=== PATIENT | female | born 1940 | race Caucasian/White ===

== ENCOUNTER 2018-06-24 12:41 | Emergency (ER) | payer MEDICARE, OTHER ==
[2018-06-24 13:06] LABS: ADD MAN DIFF? NO
[2018-06-24 13:08] LABS: WHITE BLOOD COUNT 5.4 10^3/ul (4.8-10.8)
[2018-06-24 13:08] LABS: BASOPHILS % 0.6 % (0.0-2.0); EOSINOPHILS # 0.1 10^3/ul (0.0-0.5); EOSINOPHILS % 1.5 % (0.0-7.0); HEMATOCRIT 30.2 % (37.0-47.0); HEMOGLOBIN 9.9 g/dl (12.0-16.0); LYMPHOCYTES # 2.5 10^3/ul (0.8-2.9); MEAN CORPUSCULAR HEMOGLOBIN 29.2 pg (29.0-33.0); MEAN CORPUSCULAR HGB CONC 32.8 g/dl (32.0-37.0); MEAN CORPUSCULAR VOLUME 89.1 fl (82.0-101.0); MEAN PLATELET VOLUME 8.6 fl (7.4-10.4); MONOCYTE # 0.6 10^3/ul (0.3-0.9); MONOCYTES % 10.5 % (0.0-11.0); NEUTROPHIL # 2.3 10^3/ul (1.6-7.5); PLATELET COUNT 576 10^3/UL (140-415); RED BLOOD COUNT 3.39 10^6/ul (4.20-5.40); RED CELL DISTRIBUTION WIDTH 14.1 % (11.5-14.5)
[2018-06-24] MEDS: SOD CHLORIDE 0.9% 1,000 ML IV (13:13)
[2018-06-24] MEDS: ONDANSETRON 4 MG INJ IV (13:13)
[2018-06-24] MEDS: morphine 2 MG INJ IV (13:25)
[2018-06-24 13:27] LABS: ALANINE AMINOTRANSFERASE 17 IU/L (13-69); ALBUMIN 3.6 g/dl (3.3-4.9); ALBUMIN/GLOBULIN RATIO 0.85; ALKALINE PHOSPHATASE 87 IU/L (42-121); ANION GAP 15 (8-16); ASPARTATE AMINO TRANSFERASE 28 IU/L (15-46); BILIRUBIN,INDIRECT 0.2 mg/dl (0-1.1); BILIRUBIN,TOTAL 0.2 mg/dl (0.2-1.3); BLOOD UREA NITROGEN 6 mg/dl (7-20); CARBON DIOXIDE 27 mmol/L (21-31); CHLORIDE 100 mmol/L (97-110); CREATININE 0.66 mg/dl (0.44-1.00); GLUCOSE 127 mg/dl (70-220); INR 1.09; LIPASE 424 U/L (23-300); POTASSIUM 3.8 mmol/L (3.5-5.1); PROTIME 14.3 Sec (11.9-14.9); PT RATIO 1.1; SODIUM 138 mmol/L (135-144); TOTAL PROTEIN 7.8 g/dl (6.1-8.1)
[2018-06-24] MEDS: SOD CHLORIDE 0.9% 100 ML (14:35)
[2018-06-24] MEDS: IOHEXOL 300MG/ML 150 ML BTL (14:35)
== END 2018-06-24 18:18 | disposition home or self-care (01) ==
LOC: E/R 12:41
DX: R10.84 Generalized abdominal pain (principal); R11.0 Nausea; Z79.84 Long term (current) use of oral hypoglycemic drugs; Z85.048 Personal history of other malignant neoplasm of rectum, rectosigmoid junction, and anus; Z90.49 Acquired absence of other specified parts of digestive tract
CPT/HCPCS: 36415; 74177; 80053; 83690; 85025; 85610; 85730; 93005; 96374; 99285-25

== ENCOUNTER 2019-01-17 13:54 | Inpatient (IN) | payer MEDICARE, OTHER ==
[2019-01-17 20:39] LABS: ADD MAN DIFF? NO
[2019-01-17 20:41] LABS: WHITE BLOOD COUNT 13.3 10^3/ul (4.8-10.8)
[2019-01-17 20:41] LABS: BASOPHILS % 0.2 % (0.0-2.0); EOSINOPHILS % 0.1 % (0.0-7.0); HEMATOCRIT 36.7 % (37.0-47.0); HEMOGLOBIN 12.7 g/dl (12.0-16.0); LYMPHOCYTES % 7.5 % (15.0-51.0); MEAN CORPUSCULAR HGB CONC 34.6 g/dl (32.0-37.0); MEAN CORPUSCULAR VOLUME 98.1 fl (82.0-101.0); MEAN PLATELET VOLUME 10.2 fl (7.4-10.4); MONOCYTE # 0.8 10^3/ul (0.3-0.9); NEUTROPHIL # 11.4 10^3/ul (1.6-7.5); NEUTROPHILS % 85.5 % (39.0-77.0); PLATELET COUNT 208 10^3/UL (140-415); RED BLOOD COUNT 3.74 10^6/ul (4.20-5.40); RED CELL DISTRIBUTION WIDTH 11.9 % (11.5-14.5)
[2019-01-17 20:54] LABS: ADD UMIC YES; UR ASCORBIC ACID NEGATIVE (NEGATIVE); UR BILIRUBIN (Dip) NEGATIVE (NEGATIVE); UR BLOOD (Dip) 1+ mg/dL (NEGATIVE); UR CLARITY CLOUDY (CLEAR); UR COLOR AMBER (YELLOW); UR GLUCOSE (Dip) NEGATIVE (NEGATIVE); UR KETONES (Dip) 1+ mg/dL (NEGATIVE); UR LEUKOCYTE ESTERASE (Dip) 2+ Leu/ul (NEGATIVE); UR MUCUS MANY /HPF (NONE SEEN); UR NITRITE (Dip) NEGATIVE (NEGATIVE); UR RBC 47 /HPF (0-5); UR SPECIFIC GRAVITY (Dip) 1.023 (1.003-1.030); UR SQUAMOUS EPITHELIAL CELL FEW /HPF (FEW); UR TOTAL PROTEIN (Dip) 2+ mg/dl (NEGATIVE); UR UROBILINOGEN (Dip) 2+ mg/dL (NEGATIVE); UR WBC > 182 /HPF (0-5)
[2019-01-17 20:58] LABS: ALANINE AMINOTRANSFERASE 34 IU/L (13-69); ALBUMIN 4.5 g/dl (3.3-4.9); ALBUMIN/GLOBULIN RATIO 1.07; ALKALINE PHOSPHATASE 140 IU/L (42-121); ANION GAP 16 (5-13); ASPARTATE AMINO TRANSFERASE 51 IU/L (15-46); BILIRUBIN,INDIRECT 1.6 mg/dl (0-1.1); BILIRUBIN,TOTAL 1.6 mg/dl (0.2-1.3); BLOOD UREA NITROGEN 17 mg/dl (7-20); CALCIUM 9.6 mg/dl (8.4-10.2); CARBON DIOXIDE 22 mmol/L (21-31); CHLORIDE 99 mmol/L (97-110); CREATININE 0.61 mg/dl (0.44-1.00); GLUCOSE 160 mg/dl (70-220); POTASSIUM 3.8 mmol/L (3.5-5.1); SODIUM 137 mmol/L (135-144); TOTAL PROTEIN 8.7 g/dl (6.1-8.1)
[2019-01-17 21:09] LABS: TROPONIN-I < 0.012 ng/ml (0.000-0.120)
[2019-01-17] MEDS: CEFTRIAXONE 1 GM/50 ML (PMX) 50 ML IVPB (22:56)
[2019-01-18] MEDS ORDERED: ACETAMINOPHEN 325 MG TAB PO (00:30)
[2019-01-18] MEDS ORDERED: ONDANSETRON 4 MG INJ IV ×2 (00:30→01:00)
[2019-01-18] MEDS ORDERED: NACL 0.9% 3 ML SYG IV (01:00)
[2019-01-18] MEDS: NA PHOSPHATE/BIPHOS 133 ML ENEMA PR (03:22)
[2019-01-18] MEDS: BENAZEPRIL 10 MG TAB PO ×2 (09:05→21:53)
[2019-01-18] MEDS: METOPROLOL 25 MG TAB PO ×2 (09:05→21:53)
[2019-01-18] MEDS: AMLODIPINE 10 MG TAB PO (09:05)
[2019-01-18] MEDS: CEFTRIAXONE 1 GM/50 ML (PMX) 50 ML IVPB (09:06)
[2019-01-18] MEDS: HEPARIN 5,000 UNIT/1 ML VIAL SC ×2 (09:06→21:55)
[2019-01-18] MEDS: ACETAMINOPHEN 325 MG TAB PO ×2 (09:09→18:31)
[2019-01-19 05:56] LABS: ADD MAN DIFF? NO
[2019-01-19 05:58] LABS: BASOPHILS % 0.4 % (0.0-2.0); EOSINOPHILS % 0.2 % (0.0-7.0); HEMATOCRIT 34.5 % (37.0-47.0); HEMOGLOBIN 11.9 g/dl (12.0-16.0); LYMPHOCYTES # 1.4 10^3/ul (0.8-2.9); LYMPHOCYTES % 17.4 % (15.0-51.0); MEAN CORPUSCULAR HEMOGLOBIN 33.8 pg (29.0-33.0); MEAN CORPUSCULAR HGB CONC 34.5 g/dl (32.0-37.0); MEAN PLATELET VOLUME 10.4 fl (7.4-10.4); MONOCYTE # 0.8 10^3/ul (0.3-0.9); MONOCYTES % 9.6 % (0.0-11.0); NEUTROPHIL # 5.9 10^3/ul (1.6-7.5); PLATELET COUNT 213 10^3/UL (140-415); RED BLOOD COUNT 3.52 10^6/ul (4.20-5.40); RED CELL DISTRIBUTION WIDTH 11.9 % (11.5-14.5)
[2019-01-19 05:58] LABS: WHITE BLOOD COUNT 8.2 10^3/ul (4.8-10.8)
[2019-01-19 06:42] LABS: ANION GAP 11 (5-13); BLOOD UREA NITROGEN 11 mg/dl (7-20); CARBON DIOXIDE 27 mmol/L (21-31); CHLORIDE 101 mmol/L (97-110); CREATININE 0.49 mg/dl (0.44-1.00); GLUCOSE 94 mg/dl (70-220); MAGNESIUM 1.8 mg/dl (1.7-2.5); PHOSPHORUS 3.1 mg/dl (2.5-4.9); POTASSIUM 3.3 mmol/L (3.5-5.1); SODIUM 139 mmol/L (135-144)
[2019-01-19] MEDS: ACETAMINOPHEN 325 MG TAB PO (08:58)
[2019-01-19] MEDS: AMLODIPINE 10 MG TAB PO (08:59)
[2019-01-19] MEDS: BENAZEPRIL 10 MG TAB PO (08:59)
[2019-01-19] MEDS: CEFTRIAXONE 1 GM/50 ML (PMX) 50 ML IVPB (08:59)
[2019-01-19] MEDS: METOPROLOL 25 MG TAB PO (09:02)
[2019-01-19] MEDS: HEPARIN 5,000 UNIT/1 ML VIAL SC (09:03)
[2019-01-19] MEDS: POTASSIUM CHLORIDE (SR) 20 MEQ TAB PO ×2 (10:12→14:50)
== END 2019-01-19 17:00 | disposition home or self-care (01) | DRG 689 ==
LOC: E/R 13:54 → PP2 01-18 00:06
DX: N39.0 Urinary tract infection, site not specified (principal); G92 Toxic encephalopathy; A41.9 Sepsis, unspecified organism; I10 Essential (primary) hypertension; Z85.038 Personal history of other malignant neoplasm of large intestine; Z90.49 Acquired absence of other specified parts of digestive tract
CPT/HCPCS: 71045; 80048; 80053; 81001; 83605; 83735; 84100; 84484; 85025; 87040; 87086; 87400; 93005; 96374; 99285-25

== ENCOUNTER → 2019-02-09 | Day surgery (SDC) | payer MEDICARE, OTHER ==
[~2019-02-09] MED LIST: LIDOCAINE 1% (MDV) 20 ML INJ
[2019-02-09] MEDS: SOD CHLORIDE 0.9% 1,000 ML IV (10:30)
[2019-02-09] MEDS: FENTAnyl 50 MCG/ML VIAL (11:15)
== END | disposition home or self-care (01) ==
LOC: SDS 07:26
DX: C34.90 Malignant neoplasm of unspecified part of unspecified bronchus or lung (principal); C78.6 Secondary malignant neoplasm of retroperitoneum and peritoneum
CPT/HCPCS: 49180; 77012; 88307; 88313; 88341; 88342